=== PATIENT | male | born 1950 | race Caucasian/White ===

== ENCOUNTER 2017-11-03 09:31 | Emergency (ER) | payer MEDICARE ==
[~2017-11-03] VITALS: Ht 177.8 cm; Wt 94.4 kg
[~2017-11-03 09:31] MED LIST: DILA2TAB4 PO; IBUP800 PO; PROM25SU8 PO; TAMS0.4C67 PO
[2017-11-03 09:39] VITALS: BP 179/98; PULSE 72; RESP 18; TEMP 97.1; O2SAT 95
--- NOTE | 2017-11-03 10:26 | RADRPT ---
EXAM DATE/TIME: 11/03/2017 09:59 [place] COMPARISON: No previous studies available for comparison. INDICATIONS : Right 3rd digit pain after jamming finger playing football MEDICAL HISTORY : None. SURGICAL HISTORY : None. ENCOUNTER: Initial ACUITY: 2 weeks PAIN SCORE: 3/10 LOCATION: Right 3rd digit dip FINDINGS: There is evidence of an acute avulsion fracture involving the dorsal aspect of the proximal portion o f the right third distal phalanx with involvement of the articular surface. Joint space narrowing is noted involving the interphalangeal joints of the right hand and is most significant narrowing involv ing the right second and third distal interphalangeal joints. CONCLUSION: 1. Acute avulsion fracture involving the dorsal aspect of the proximal portion of the right third dis mart phalanx with involvement of the articular surface. 2. Joint space narrowing involving the interphalangeal joints of right hand with no significant narro wing involving the right second and third distal interphalangeal joints. Luis Washington MD on November 03, 2017 at 10:21 Board Certified Radiologist. This report was verified electronically.
--- NOTE | 2017-11-03 10:41 | PD ---
HPI Chief Complaint: Injury Time Seen by Provider: 09:46 Travel History International Travel<30 days: No Contact w/Intl Traveler<30days: No Traveled to known affect area: No History of Present Illness HPI 66-year-old male here with finger pain of the right third digit 2 weeks. Patient reports he jammed the finger while playing football. He splinted the finger with popsicle sticks for the last several weeks. The area remains painful and is in a slight bent position prompting his visit today. He reports normal sensation and full range of motion of the finger. The pain is localized to the right third DIP joint which is mild in nature. Pain is reproducible to movement and relieved with rest. PFSH Past Medical History Diminished Hearing: No Kidney Stones: Yes Immunizations Current: Yes Influenza Vaccination: Yes Past Surgical History Surgical History: No Previous Surgery Social History Alcohol Use: No Tobacco Use: No Substance Use: No Allergies-Medications (Allergen,Severity, Reaction): Coded Allergies: No Known Allergies (Unverified Adverse Reaction, Unknown, 11/03/17) Reported Meds & Prescriptions Reported Meds & Active Scripts Active No Active Prescriptions or Reported Medications Review of Systems Except as stated in HPI: all other systems reviewed are Neg General / Constitutional: No: Fever Eyes: No: Visual changes HENT: No: Headaches Cardiovascular: No: Chest Pain or Discomfort Respiratory: No: Shortness of Breath Gastrointestinal: No: Abdominal Pain Physical Exam Narrative GENERAL: Alert and well-appearing 66-year-old male SKIN: Warm and dry. HEAD: Normocephalic. EYES: No injection or drainage. NECK: Supple CARDIOVASCULAR: Regular rate and rhythm RESPIRATORY: Breath sounds equal bilaterally. No accessory muscle use. GASTROINTESTINAL: nondistended. MUSCULOSKELETAL: No cyanosis, or edema. Right hand third digit: Tenderness over the right distal phalanx. DIP joint in slight flexion. Patient is able to flex and extend all joints. Normal sensation. Brisk cap refill. Data Data Last Documented VS Vital Signs Date Time Temp Pulse Resp B/P (MAP) Pulse Ox O2 Delivery O2 Flow Rate FiO2 11/03/17 09:39 97.1 72 18 179/98 (125) 95 Orders Orders Finger ([id number]) (11/03/17 ) Ed Discharge Order (11/03/17 10:41) MDM Medical Decision Making Medical Screen Exam Complete: Yes Emergency Medical Condition: Yes Differential Diagnosis Finger fracture, finger dislocation, finger sprain Narrative Course 66-year-old male here with injury to the right third digit DIP joint approximately 2 weeks ago. The extremity is neurovascularly intact. X-ray revealed avulsion fracture. No dislocation. Finger splint was applied. Patient is to follow-up with hand surgeon. He was given the name and number to call in Surgeon Dr. Tomlin Diagnosis Primary Impression: Finger fracture Qualified Codes: S62.662A - Nondisplaced fracture of distal phalanx of right middle finger, initial encounter for closed fracture Referrals: Kalen Tomlin III, MD, Srikanth MD Henry,Aleyda Villanueva MD Additional Instructions: Use finger splint as directed. Call to schedule a follow-up appointment with hand surgeon. Return if he develop new or worsening symptoms Scripts No Active Prescriptions or Reported Meds Disposition: 01 DISCHARGE HOME Condition: Stable Shraddha Bryan Nov 03, 2017 10:41
== END 2017-11-03 10:47 | disposition home or self-care (01) ==
LOC: PHEFT 09:31
DX: S62.662A Nondisplaced fracture of distal phalanx of right middle finger, initial encounter for closed fracture (principal); Y93.61 Activity, american tackle football; Z87.442 Personal history of urinary calculi
CPT/HCPCS: 73140; 99283